=== PATIENT | female | born 1965 | race Caucasian/White ===

== ENCOUNTER 2017-03-08 19:25 | Emergency (ER) | payer OTHER ==
[~2017-03-08] VITALS: Ht 162.6 cm; Wt 65.8 kg
[2017-03-08 19:30] VITALS: BP_SYST 153
[2017-03-08] MEDS: IBUPROFEN 800 MG TABLET PO ONE (20:01)
[2017-03-08] MEDS: CARISOPRODOL 350 MG TABLET PO ONE (21:20)
[2017-03-08 21:39] VITALS: BP_SYST 133
== END 2017-03-08 21:39 | disposition home or self-care (01) ==
LOC: SED 19:25
DX: S16.1XXA Strain of muscle, fascia and tendon at neck level, initial encounter (principal); S20.219A Contusion of unspecified front wall of thorax, initial encounter; V89.2XXA Person injured in unspecified motor-vehicle accident, traffic, initial encounter; Y93.89 Activity, other specified; Y92.488 Other paved roadways as the place of occurrence of the external cause; Y99.8 Other external cause status
CPT/HCPCS: 71250-TC; 72125-TC; 93005; 99284